=== PATIENT | female | born 1960 | race Asian ===

== ENCOUNTER → 2019-08-05 | Outpatient (CLI) | payer OTHER ==
--- NOTE | 2019-08-05 13:00 | RAD ---
EXAM: CHEST PA LATERAL INDICATION: Chronic cough. TECHNIQUE: PA and lateral views COMPARISON: None FINDINGS: The heart size is normal. The great vessels appear unremarkable. There is no hilar or mediastinal mass. The lungs are clear. There is no pleural effusion or pneumothorax. There are no significant osseous abnormalities. IMPRESSION: No active cardiopulmonary disease. Electronically signed by: Trung Thompson MD (08/05/2019 12:57 PM) [id number]
== END | disposition home or self-care (01) ==
LOC: RAD 12:08
PROVIDERS: ATTEND Family Medicine
DX: R05 Cough (principal)
CPT/HCPCS: 71046

== ENCOUNTER 2021-07-06 17:12 | Emergency (ER) | payer OTHER ==
[~2021-07-06] VITALS: Ht 160 cm; Wt 57.0 kg
[2021-07-06 17:22] VITALS: BP 171/80
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
[2021-07-06] MEDS ORDERED: HYDR-2761 PO (19:39)
[2021-07-06] MEDS ORDERED: HYDROcodone/APAP 5/325MG 1 TAB TABLET PO ONE (19:45)
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
== END 2021-07-06 20:45 | disposition home or self-care (01) ==
LOC: ER 17:12
DX: S62.92XA Unspecified fracture of left hand, initial encounter for closed fracture (principal); V49.59XA Passenger injured in collision with other motor vehicles in traffic accident, initial encounter; Y92.488 Other paved roadways as the place of occurrence of the external cause; Y93.89 Activity, other specified; Y99.8 Other external cause status
CPT/HCPCS: 29125; 99283; 73130-50